=== PATIENT | female | born 1970 | race Caucasian/White ===

== ENCOUNTER 2017-09-28 19:54 | Emergency (ER) | payer MEDICAID, OTHER ==
[~2017-09-28] VITALS: Ht 167.6 cm; Wt 62.0 kg
[~2017-09-28 19:54] MED LIST: TOPA15CA PO
[2017-09-28 19:55] VITALS: BP 181/88; PULSE 75; RESP 16; TEMP 98.7; O2SAT 99
[2017-09-28] MEDS ORDERED: PANTOPRAZOLE SOD 40 MG DELAYED RELEASE TAB PO ONE (20:45)
[2017-09-28] MEDS ORDERED: ALUMINUM/MAGNESIUM/SIMETH 30 ML CUP PO ONE (20:45)
[2017-09-28] MEDS ORDERED: LIDOCAINE VISCOUS 2% SOLN 15 ML UDC PO ONE (20:45)
[2017-09-28] MEDS ORDERED: SODIUM CHLORIDE 0.9% FLUSH 10 ML FLUSH IV FLUSH PRN (20:45)
[2017-09-28 21:10] LABS: AUTOMATED NEUTROPHIL # 3.4 TH/MM3 (1.8-7.7); BASOPHIL % 0.3 % (0.0-2.0); EOSINOPHIL # 0.2 TH/MM3 (0-0.4); EOSINOPHIL % 2.5 % (0.0-4.0); HEMATOCRIT 41.4 % (35.0-46.0); HEMO FLAGS DIFF FINAL; LYMPH % 43.3 % (9.0-44.0); LYMPHOCYTE # 3.2 TH/MM3 (1.0-4.8); MONO % 7.7 % (0.0-8.0); NEUT % 46.2 % (16.0-70.0); PLATELET COUNT 364 TH/MM3 (150-450); RED BLOOD COUNT 4.26 MIL/MM3 (4.00-5.30); RED CELL DISTRIBUTION WIDTH 12.2 % (11.6-17.2); WHITE BLOOD COUNT 7.3 TH/MM3 (4.0-11.0)
[2017-09-28 21:24] LABS: ANION GAP 9 MEQ/L (5-15); AST (GOT) 11 U/L (15-37); BICARBONATE 24.2 MEQ/L (21.0-32.0); BLOOD UREA NITROGEN 5 MG/DL (7-18); CHLORIDE 107 MEQ/L (98-107); GLOMERULAR FILTRATION RATE 131 ML/MIN (>89); POTASSIUM 3.1 MEQ/L (3.5-5.1); SODIUM (NA) 140 MEQ/L (136-145)
[2017-09-28 21:28] LABS: ALKALINE PHOSPHATASE 76 U/L (45-117); ALT (GPT) 19 U/L (10-53); TOTAL BILIRUBIN ADULT 0.1 MG/DL (0.2-1.0)
[2017-09-28] MEDS ORDERED: OMEP40CA2 PO (21:45)
--- NOTE | 2017-09-28 21:46 | PD ---
HPI Chief Complaint: Abdominal Pain Time Seen by Provider: 20:28 Travel History International Travel<30 days: No Contact w/Intl Traveler<30days: No Traveled to known affect area: No History of Present Illness HPI Is a 47-year-old woman who presents to the emergency department complaining of abdominal pain. She's had abdominal pain one to 2 times a week for the past year or so. She is a history of a perforated duodenal ulcer in 2007. Pains gotten worse over the past couple days and she had it twice today. Describes it is not really associated with eating. No nausea or vomiting. No urinary changes. No other complaints. Pain is epigastric, moderately severe, lasting a few hours. History Past Medical History Narrative Medical History duodenal ulcer perforation in 2007 Takes acetaminophen daily for headaches, no NSAIDs Social History Alcohol Use: Yes (3 TIMES A WEEK) Tobacco Use: Yes (cigarettes 1ppd) Allergies-Medications (Allergen,Severity, Reaction): Coded Allergies: No Known Allergies (Verified Allergy, Mild, 09/28/17) Reported Meds & Prescriptions Reported Meds & Active Scripts Active No Active Prescriptions or Reported Medications Review of Systems Except as stated in HPI: all other systems reviewed are Neg Physical Exam Narrative GENERAL: Well-appearing 47 year-old woman, no acute distress. SKIN: Focused skin assessment warm/dry. HEAD: Atraumatic. Normocephalic. EYES: Pupils equal and round. No scleral icterus. No injection or drainage. ENT: No nasal bleeding or discharge. Mucous membranes pink and moist. NECK: Trachea midline. No JVD. CARDIOVASCULAR: Regular rate and rhythm. No murmur appreciated. RESPIRATORY: No accessory muscle use. Clear to auscultation. Breath sounds equal bilaterally. GASTROINTESTINAL: Abdomen is flat and soft. Well-healed midline abdominal scar. She is epigastric tenderness without rebound or guarding. MUSCULOSKELETAL: No obvious deformities. No clubbing. No cyanosis. No edema. NEUROLOGICAL: Awake and alert. No obvious cranial nerve deficits. Motor grossly within normal limits. Normal speech. PSYCHIATRIC: Appropriate mood and affect; insight and judgment normal. Data Data Last Documented VS Vital Signs Date Time Temp Pulse Resp B/P (MAP) Pulse Ox O2 Delivery O2 Flow Rate FiO2 09/28/17 19:55 98.7 75 16 181/88 (119) 99 Room Air Orders Orders Complete Blood Count With Diff (09/28/17 20:36) Comprehensive Metabolic Panel (09/28/17 20:36) Lipase (09/28/17 20:36) Iv Access Insert/Monitor (09/28/17 20:36) Sodium Chloride 0.9% Flush (Ns Flush) (09/28/17 20:45) Al-Mag Hy-Si 40-40-4 Mg/Ml Liq (Mag-Al P (09/28/17 20:45) Lidocaine 2% Viscous (Xylocaine 2% Visco (09/28/17 20:45) Ed Urine Pregnancytest Poc (09/28/17 20:36) Ed Poc Ultrasound (09/28/17 20:36) Pantoprazole (Protonix) (09/28/17 20:45) Labs Laboratory Tests Test 09/28/17 20:40 White Blood Count 7.3 TH/MM3 Red Blood Count 4.26 MIL/MM3 Hemoglobin 13.6 GM/DL Hematocrit 41.4 % Mean Corpuscular Volume 97.0 FL Mean Corpuscular Hemoglobin 32.0 PG Mean Corpuscular Hemoglobin Concent 33.0 % Red Cell Distribution Width 12.2 % Platelet Count 364 TH/MM3 Mean Platelet Volume 8.4 FL Neutrophils (%) (Auto) 46.2 % Lymphocytes (%) (Auto) 43.3 % Monocytes (%) (Auto) 7.7 % Eosinophils (%) (Auto) 2.5 % Basophils (%) (Auto) 0.3 % Neutrophils # (Auto) 3.4 TH/MM3 Lymphocytes # (Auto) 3.2 TH/MM3 Monocytes # (Auto) 0.6 TH/MM3 Eosinophils # (Auto) 0.2 TH/MM3 Basophils # (Auto) 0.0 TH/MM3 CBC Comment DIFF FINAL Differential Comment Blood Urea Nitrogen 5 MG/DL Creatinine 0.50 MG/DL Random Glucose 95 MG/DL Total Protein 6.9 GM/DL Albumin 3.6 GM/DL Calcium Level 8.4 MG/DL Alkaline Phosphatase 76 U/L Aspartate Amino Transf (AST/SGOT) 11 U/L Alanine Aminotransferase (ALT/SGPT) 19 U/L Total Bilirubin 0.1 MG/DL Sodium Level 140 MEQ/L Potassium Level 3.1 MEQ/L Chloride Level 107 MEQ/L Carbon Dioxide Level 24.2 MEQ/L Anion Gap 9 MEQ/L Estimat Glomerular Filtration Rate 131 ML/MIN Lipase 153 U/L MDM Medical Decision Making Medical Screen Exam Complete: Yes Emergency Medical Condition: Yes Interpretation(s) LABS: CBC is unremarkable. CMP is unremarkable. Lipase is normal. Differential Diagnosis Gastritis, peptic ulcer disease, pancreatitis, hepatobiliary disease, cholecystitis, other Narrative Course Medical decision making INITIAL: Is a 47-year-old woman presents to the emergency department complaining of epigastric pain. She is a history of peptic ulcer disease. It sounds like gastritis or peptic ulcer disease. She looks well. Benign exam. Gallbladder ultrasound is unremarkable. Procedures Procedure Narrative Splenic or ultrasound: Focus transabdominal ultrasounds perform immediate the bedside for the purpose of evaluating for evidence of cholecystitis. Gallbladder was visualized. Epsarza are little bit thick but it was decompressed. Is no pericholecystic fluid. There is no gallstones. There is no sonographic Gutierrez sign. Diagnosis Primary Impression: Gastritis and duodenitis Additional Instructions: Follow-up with your GI doctor to first available appointment. Take Prilosec as prescribed. Return to the emergency department for any new or worsening symptoms. Med/Other Pt SpecificInfo: Prescription(s) given Scripts Omeprazole (Omeprazole) 40 Mg Cap 40 MG PO DAILY, #30 CAP 0 Refills Prov: Ryan Lezama MD 09/28/17 Disposition: 01 DISCHARGE HOME Condition: Stable Ryan Lezama MD Sep 28, 2017 21:46
[2017-09-28 21:56] VITALS: BP 160/90
== END 2017-09-28 21:57 | disposition home or self-care (01) ==
LOC: NEPC 19:54
DX: K29.70 Gastritis, unspecified, without bleeding (principal); K29.80 Duodenitis without bleeding; F17.210 Nicotine dependence, cigarettes, uncomplicated
CPT/HCPCS: 80053; 83690; 84703; 85025; 99284